=== PATIENT | male | born 1960 | race Caucasian/White ===

== ENCOUNTER 2018-04-27 10:42 | Emergency (ER) ==
[2018-04-27 10:53] VITALS: BP 172/121; TEMP 96.7; BMI 24.7
--- NOTE | 2018-04-27 12:00 | CT ---
EXAM: CT LUMBAR SPINE HISTORY: Back pain with radicular symptoms into the left hip TECHNIQUE: CT lumbar spine without contrast. 3-mm axial sections. Coronal and sagittal reformation s. COMPARISON: None FINDINGS: No fracture or loss of vertebral body height. No scoliosis or spondylolisthesis. Sacroiliac joints are within normal limits. Pedicles appear congenitally short. There is diffuse disc bulging most apparent at L3/L4 and L4/L5 where there is moderate to severe cent ral canal stenosis and probably moderate bilateral neural foraminal narrowing. No paraspinal fluid c ollection. Incidental note of atherosclerotic disease. IMPRESSION: Combination of congenitally short pedicles and diffuse disc bulging lead to significant central canal and neural foraminal narrowing. Given history, correlation with follow-up MRI is recommended.
--- NOTE | 2018-04-27 12:15 | CT ---
Exam: CT pelvis without contrast HISTORY: Hip pain chronic left. Low back pain radiating into the left hip. Procedures: 3mm contiguous axial images were obtained through the abdomen and pelvis without the use of intravenous or oral contrast. Sagittal and coronal reformatted images were also created and revi ewed. Findings: There are no prior studies of the pelvis at this institution. The visualized loops of larg e and small bowel appear nondilated. The appendix that demonstrates no dilatation or inflammation. The urinary bladder and rectum appear within normal limits. The prostate gland is mildly enlarged. There is no free air, free fluid or lymphadenopathy in the pelvis. Atherosclerotic disease is noted. . Bone windows demonstrate mild degenerative findings in the hips and lumbosacral spine. There is n o osseous erosion or radiodense foreign body. Impressions: Mild degenerative findings in both hips. No acute fracture or dislocation. Atherosclerosis. Given the history of radiculopathy, consider MRI of the lumbar spine to evaluate for potential neural impingement. Findings were faxed to the emergency department at 12:05 p.m.
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
== END 2018-04-27 12:32 | disposition home or self-care (01) ==
LOC: ED 10:42
DX: M25.552 Pain in left hip (principal); M54.5 Low back pain
CPT/HCPCS: 99282

== ENCOUNTER 2018-12-26 16:24 | Emergency (ER) ==
[2018-12-26 16:30] VITALS: BP 140/80; TEMP 97.8; BMI 24.3
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
--- NOTE | 2018-12-26 18:16 | CT ---
EXAM: CT scan of the right foot without contrast HISTORY: Injury, pain TECHNIQUE: Imaging of the right foot was performed without contrast. Sagittal and coronal reconstru ctions and axial images and rotated 3-D reconstructions were provided for interpretation. FINDINGS: There are mildly displaced fractures seen along the base of the second and third metatarsa ls. The tarsal bones are intact. No acute fractures are seen within the phalanges. There is mild d orsal soft tissue swelling. There is a fracture of the distal fibula. IMPRESSION: There are mildly displaced transverse fractures seen at the base of the second and third metatarsals. Mildly displaced fracture of the distal fibula.
--- NOTE | 2018-12-26 18:17 | CT ---
EXAM: CT scan right tibia-fibula HISTORY: Injury COMPARISON: None. FINDINGS: The contiguous axial images obtained through the tibia fibula without contrast utilizing m m collimation. Sagittal and coronal reconstructions were imaged and reviewed. There is a nondisplac ed oblique fracture involving the distal fibula whose inferior margin extends to the of the ankle danette nt. The tibiotalar joints intact. There is surrounding soft tissue swelling. IMPRESSION: Nondisplaced oblique fracture involving the distal fibula as described
== END 2018-12-26 18:58 | disposition home or self-care (01) ==
LOC: ED 16:24
DX: S82.435A Nondisplaced oblique fracture of shaft of left fibula, initial encounter for closed fracture (principal); S92.321A Displaced fracture of second metatarsal bone, right foot, initial encounter for closed fracture; S92.331A Displaced fracture of third metatarsal bone, right foot, initial encounter for closed fracture; V86.55XA Driver of 3- or 4- wheeled all-terrain vehicle (ATV) injured in nontraffic accident, initial encounter; F17.210 Nicotine dependence, cigarettes, uncomplicated
CPT/HCPCS: 99283